=== PATIENT | female | born 1985 | race Two or more races ===

== ENCOUNTER 2016-07-13 23:08 | Emergency (ER) | payer OTHER ==
[~2016-07-13] VITALS: Ht 162.6 cm; Wt 59.0 kg
--- NOTE | 2016-07-13 23:05 | Emergency Room Report ---
History of Present Illness General Chief Complaint: Overdose Source: Patient Present Illness HPI 1 hour prior to presentation the patient at 10 X 50 mg trazodone tablets. She had been drinking alcohol. She wants to end her life. She states that she just lost her cousin to breast cancer and a falling out with her mother. She is also having difficulty in school. She's never tried to harm herself in the past. She would not answer whether she still wants to harm her self at the moment. She feels nauseated at this time. She is on her period. She denies any other medical problems or symptoms aside from nausea. Allergies: Coded Allergies: PENICILLINS (Verified Allergy, Unknown, 07/13/16) Patient History Past Medical History: see triage record Social History: Reports: alcohol use Social History Narrative Student at graphic design Reviewed Nursing Documentation: PMH: Agreed, PSxH: Agreed Nursing Documentation-PMH History Of Psychiatric Problem: Yes Review of Systems All Other Systems: negative except mentioned in HPI Physical Exam Vital Signs Date Time Temp Pulse Resp B/P Pulse Ox O2 Delivery O2 Flow Rate FiO2 07/13/16 22:48 98.1 95 16 108/66 99 Room Air Sp02 EP Interpretation: reviewed, normal General Appearance: well appearing, no apparent distress, GCS 15 Head: normocephalic Eyes: bilateral eye PERRL, bilateral eye other ENT: moist mucus membranes Neck: supple Respiratory: lungs clear, normal breath sounds Cardiovascular #1: regular rate, rhythm Cardiovascular #2: 2+ radial (R) Gastrointestinal: normal inspection, normal bowel sounds, non tender, no mass, non-distended Musculoskeletal: back normal, gait/station normal, normal range of motion Neurologic: alert, oriented x3, grossly normal Psychiatric: depressed affect, other - Will not answer about suicidality Suicide Risk Assessment: Suicidal Ideation: Yes Had intent to initiate attempt: Yes Pt's plan for suicide attempt: Yes Has means to complete attempt: Yes Skin: normal inspection, warm/dry Medical Decision Making Diagnostic Impression: Primary Impression: intentional trazadone overdose Additional Impressions: Alcohol intoxication Qualified Codes: F10.129 - Alcohol abuse with intoxication, unspecified Depression Qualified Codes: F32.9 - Major depressive disorder, single episode, unspecified ER Course Patient presents after an intentional overdose of trazodone drink alcohol. Differential includes suicide gesture, electrolyte abnormality, depression, polypharmacy abuse amongst others. Patient needs to have medical evaluation and monitoring including labs, EKG history the patient will get IV hydration. She will need to have psychiatric evaluation. Labs sig for EtOH. Patient resting calmly here. Will have PET eval when more sober. Patient medically stable for PET evaluation. They request repeat blood alcohol. Ordered. More alert. Still nausea. Await BA to return and PET eval. Signed out to Dr. Villanueva. Patient again under my care. Placed on 5150. Awaiting placement. NAD and resting without distress. Signed out to Dr. Lundberg. Laboratory Tests Test 07/13/16 23:30 White Blood Count 7.0 K/UL (4.8-10.8) Red Blood Count 4.61 M/UL (4.20-5.40) Hemoglobin 14.7 G/DL (12.0-16.0) Hematocrit 44.2 % (37.0-47.0) Mean Corpuscular Volume 96 FL (80-99) Mean Corpuscular Hemoglobin 31.9 PG (27.0-31.0) H Mean Corpuscular Hemoglobin Concent 33.2 G/DL (32.0-36.0) Red Cell Distribution Width 12.7 % (11.6-14.8) Platelet Count 194 K/UL (150-450) Mean Platelet Volume 7.4 FL (6.5-10.1) Neutrophils (%) (Auto) 61.5 % (45.0-75.0) Lymphocytes (%) (Auto) 24.8 % (20.0-45.0) Monocytes (%) (Auto) 9.0 % (1.0-10.0) Eosinophils (%) (Auto) 3.4 % (0.0-3.0) H Basophils (%) (Auto) 1.2 % (0.0-2.0) Urine Color Pale yellow Urine Appearance Clear Urine pH 6 (4.5-8.0) Urine Specific [place] 1.010 (1.005-1.035) Urine Protein Negative (NEGATIVE) Urine Glucose (UA) Negative (NEGATIVE) Urine Ketones Negative (NEGATIVE) Urine Occult Blood 1+ (NEGATIVE) H Urine Nitrite Negative (NEGATIVE) Urine Bilirubin Negative (NEGATIVE) Urine Urobilinogen Normal MG/DL (0.0-1.0) Urine Leukocyte Esterase Negative (NEGATIVE) Urine RBC 0-2 /HPF (0 - 2) Urine WBC 0 /HPF (0 - 2) Urine Squamous Epithelial Cells Occasional /LPF Urine Bacteria Moderate /HPF (NONE) H Urine HCG, Qualitative Negative Sodium Level 142 mEQ/L (135-145) Potassium Level 3.4 mEQ/L (3.4-4.9) Chloride Level 103 mEQ/L (98-107) Carbon Dioxide Level 24 mEQ/L (20-30) Anion Gap 15 (5-15) Blood Urea Nitrogen 6 mg/dL (7-23) L Creatinine 0.8 mg/dL (0.5-0.9) Estimate Glomerular Filtration Rate > 60 mL/min (>60) Glucose Level 97 mg/dL (74-106) Calcium Level 9.1 mg/dL (8.6-10.2) Total Bilirubin 0.2 mg/dL (0.0-1.2) Aspartate Amino Transferase (AST) 13 U/L (5-40) Alanine Aminotransferase (ALT) 11 U/L (3-33) Alkaline Phosphatase 52 U/L (35-104) Total Protein 7.2 g/dL (6.6-8.7) Albumin 4.1 g/dL (3.5-5.2) Globulin 3.1 g/dL Albumin/Globulin Ratio 1.3 (1.0-2.7) Salicylates Level < 1 mg/dL (10-30) L Urine Opiates Screen Negative (NEGATIVE) Acetaminophen Level < 10 ug/mL (10-30) L Urine Barbiturates Screen Negative (NEGATIVE) Phencyclidine (PCP) Screen Negative (NEGATIVE) Urine Amphetamines Screen Negative (NEGATIVE) Urine Benzodiazepines Screen Negative (NEGATIVE) Urine Cocaine Screen Negative (NEGATIVE) Urine Marijuana (THC) Screen Negative (NEGATIVE) Serum Alcohol 190 mg/dL EKG Diagnostic Results Rate: normal Rhythm: NSR ST Segments: no acute changes - R axis Rhythm Strip Diag. Results EP Interpretation: yes Rhythm: NSR, no PVC's, no ectopy Last Vital Signs Date Time Temp Pulse Resp B/P Pulse Ox O2 Delivery O2 Flow Rate FiO2 07/14/16 07:00 63 16 101/63 95 Room Air 07/14/16 04:00 98.4 Status: improved Clarence Peguero M.D. Jul 13, 2016 23:05
[~2016-07-13 23:08] MED LIST: ATIVAN0.5 MG ORAL; TRAZODONE HCL50 MG ORAL; ZOLOFT25 MG ORAL
[2016-07-13 23:15] VITALS: BP_SYST 120; BP_SYST 90; BP_DIAS 52; BP_DIAS 79
[2016-07-13 23:45] LABS: BASOPHILS % (AUTO) 1.2 % (0.0-2.0); EOSINOPHILS % (AUTO) 3.4 % (0.0-3.0); LYMPHOCYTES % (AUTO) 24.8 % (20.0-45.0); MEAN CORPUSCULAR HEMOGLOBIN 31.9 PG (27.0-31.0); MEAN CORPUSCULAR HGB CONC 33.2 G/DL (32.0-36.0); MEAN CORPUSCULAR VOLUME 96 FL (80-99); MEAN PLATELET VOLUME 7.4 FL (6.5-10.1); NEUTROPHILS % (AUTO) 61.5 % (45.0-75.0); PLATELET COUNT 194 K/UL (150-450); RED BLOOD COUNT 4.61 M/UL (4.20-5.40); RED CELL DISTRIBUTION WIDTH 12.7 % (11.6-14.8)
[2016-07-13 23:46] LABS: APPEARANCE,URINE CLEAR; KETONES,URINE NEGATIVE (NEGATIVE); LEUKOCYTE ESTERASE ,URINE NEGATIVE (NEGATIVE); NITRITE,URINE NEGATIVE (NEGATIVE); PH,URINE 6 (4.5-8.0); PROTEIN,URINE NEGATIVE (NEGATIVE); UROBILINOGEN,URINE NORMAL MG/DL (0.0-1.0)
[2016-07-13 23:54] LABS: BACTERIA,URINE MODERATE /HPF; RBC,URINE 0-2 /HPF (0 - 2); SQUAMOUS EPITHELIAL CELL,UR OCCASIONAL /LPF (NONE/OCC); WBC,URINE 0 /HPF (0 - 2)
[2016-07-13 23:58] LABS: ACETAMINOPHEN < 10 ug/mL (10-30); ALANINE AMINOTRANSFERASE 11 U/L (3-33); ALBUMIN/GLOBULIN RATIO 1.3 (1.0-2.7); ALCOHOL 190 mg/dL; ANION GAP 15 (5-15); ASPARTATE AMINO TRANSFERASE 13 U/L (5-40); CALCIUM 9.1 mg/dL (8.6-10.2); CARBON DIOXIDE 24 mEQ/L (20-30); CHLORIDE 103 mEQ/L (98-107); CREATININE 0.8 mg/dL (0.5-0.9); GLOMERULAR FILTRATION RATE > 60 mL/min (>60); HEMOLYSIS 3; POTASSIUM 3.4 mEQ/L (3.4-4.9); SODIUM 142 mEQ/L (135-145); TOTAL PROTEIN 7.2 g/dL (6.6-8.7)
[2016-07-14] VITALS (10 sets, daily range): BP systolic 81–106; BP diastolic 42–70
--- NOTE | 2016-07-14 12:02 | Emergency Room Report ---
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 Physical Exam Vital Signs Date Time Temp Pulse Resp B/P Pulse Ox O2 Delivery O2 Flow Rate FiO2 07/13/16 22:48 98.1 95 16 108/66 99 Room Air General Appearance: well appearing, no apparent distress, other Head: normocephalic, atraumatic ENT: hearing grossly normal, normal voice Neck: full range of motion, supple Respiratory: no respiratory distress, speaking full sentences Musculoskeletal: no calf tenderness Neurologic: alert, normal gait Psychiatric: mood/affect normal Skin: no rash Medical Decision Making Diagnostic Impression: Primary Impression: intentional trazadone overdose Additional Impressions: Alcohol intoxication Qualified Codes: F10.129 - Alcohol abuse with intoxication, unspecified Depression Qualified Codes: F32.9 - Major depressive disorder, single episode, unspecified ER Course Observed patient during my shift, repeat alcohol performed, patient had mild nausea treated with Zofran. Currently awaiting PET evaluation. Will sign out to oncoming physician. Reevaluation Time: 12:01 Last Vital Signs Date Time Temp Pulse Resp B/P Pulse Ox O2 Delivery O2 Flow Rate FiO2 07/14/16 09:00 90 16 95/55 95 Room Air 07/14/16 04:00 98.4 Status: unchanged Condition: Serious Referrals: NOT CHOSEN [facility]/,REFERRING (PCP) Yovani Arizmendi MD Jul 14, 2016 12:02
[2016-07-14] MEDS ORDERED: LORazepam 0.5mg tab ORAL ONE (18:00)
--- NOTE | 2016-07-14 18:04 | Emergency Room Report ---
Physical Exam Vital Signs Date Time Temp Pulse Resp B/P Pulse Ox O2 Delivery O2 Flow Rate FiO2 07/13/16 22:48 98.1 95 16 108/66 99 Room Air Medical Decision Making Diagnostic Impression: Primary Impression: intentional trazadone overdose Additional Impressions: Alcohol intoxication Qualified Codes: F10.129 - Alcohol abuse with intoxication, unspecified Depression Qualified Codes: F32.9 - Major depressive disorder, single episode, unspecified ER Course Received signout from Dr Arizmendi that patient awaiting PET. At 604pm, patient c/o anxiety and was given Ativan 0.5mg PO with improvement Pending PET vj LARIOS spoke with family. No other acute issues in ED during my shift Last Vital Signs Date Time Temp Pulse Resp B/P Pulse Ox O2 Delivery O2 Flow Rate FiO2 07/14/16 17:21 99.0 97 20 102/62 99 Room Air Status: improved Disposition: XFER TO PSYCH HOSP/UNIT Condition: Serious Referrals: NOT CHOSEN [facility]/,REFERRING (PCP) SAUL BORJAS M.D. Jul 14, 2016 18:04
[2016-07-15 02:01] VITALS: BP 105/68
[2016-07-15 04:55] VITALS: BP 110/62
[2016-07-15 07:11] VITALS: BP 105/68
[2016-07-15 12:15] VITALS: BP 117/84
--- NOTE | 2016-07-15 13:25 | Emergency Room Report ---
Physical Exam Vital Signs Date Time Temp Pulse Resp B/P Pulse Ox O2 Delivery O2 Flow Rate FiO2 07/13/16 22:48 98.1 95 16 108/66 99 Room Air Medical Decision Making Diagnostic Impression: Primary Impression: intentional trazadone overdose Additional Impressions: Alcohol intoxication Qualified Codes: F10.129 - Alcohol abuse with intoxication, unspecified Depression Qualified Codes: F32.9 - Major depressive disorder, single episode, unspecified ER Course Patient was endorsed to me by Dr. Peguero. Patient was noted to have been placed on a 5150. The patient was accepted by [facility] for a psychiatric placement. The patient transferred via basic ambulance for management of psychiatric condition. Last Vital Signs Date Time Temp Pulse Resp B/P Pulse Ox O2 Delivery O2 Flow Rate FiO2 07/15/16 07:11 97.5 84 17 105/68 98 Room Air Status: unchanged Disposition: XFER TO PSYCH HOSP/UNIT Condition: Serious Referrals: NOT CHOSEN [facility]/,REFERRING (PCP) Bryce Lundberg Jul 15, 2016 13:24
[2016-07-15 15:24] VITALS: BP 109/76
--- NOTE | 2016-07-16 15:53 | Cardiology Report ---
APPROVED REPORT EKG Measurement Heart [id number] Normal sinus rhythm Rightward axis Borderline ECG
== END 2016-07-14 ==
LOC: EDBD 23:08 → EMR 07-14 00:36
DX: T43.212A Poisoning by selective serotonin and norepinephrine reuptake inhibitors, intentional self-harm, initial encounter (principal); Y92.9 Unspecified place or not applicable; F10.129 Alcohol abuse with intoxication, unspecified; F32.9 Major depressive disorder, single episode, unspecified; Z88.0 Allergy status to penicillin
CPT/HCPCS: 36415; 80053; 80300; 81003; 81025; 85025; 87086; 87181; 93005; 96361; 96374; 96375; 99284; G0480; J2405; 80329